=== PATIENT | female | born 1965 | race African-American/Black ===

== ENCOUNTER 2018-06-24 18:49 | Emergency (ER) | payer OTHER ==
[2018-06-24 18:54] VITALS: BP 129/82; PULSE 111; TEMP 100.2
[2018-06-24] MEDS ORDERED: ALBUTEROL SO4 2.5/IPRATROPIUM 0.5 INH SOL 3 ML VIAL.NEB. NEB ONE ×2 (19:16→19:43)
[2018-06-24] MEDS ORDERED: ACETAMINOPHEN 500 MG TABLET (FP) PO ONE (19:16)
[2018-06-24] MEDS ORDERED: predniSONE 20 MG TABLET (UD) PO ONE (19:17)
[2018-06-24] MEDS ORDERED: LOPERAMIDE HCL 2 MG CAPSULE PO ONE (19:17)
--- NOTE | 2018-06-24 19:18 | PDOC ---
History of Present Illness - History of Present Illness Initial Comments: 06/24/18 19:38 HPI: The patient is a 52 year old female, with a significant past medical history of asthma, COPD, and HTN, who presents to the emergency department with, 2 days of worsening shortness of breath diarrhea, fevers, chills, and productive cough with dark brown sputum. She describes her diarrhea as 6 episodes of nonbloody, watery stools. Patient also endorses associated weakness, decreased PO intake, and dizziness. She notes taking Pepto Bismol and her rescue inhaler, with minimal relief, prompting her visit to the ER. She denies recent nausea, vomit, or constipation. She denies recent dysuria, frequency, urgency or hematuria. She denies recent chest pain or palpitations. PAST MEDICAL HISTORY: no significant history PAST SURGICAL HISTORY: no significant history FAMILY HISTORY: no pertinent history SOCIAL HISTORY: Pt lives with family and is employed. MEDICATIONS: reviewed ALLERGIES: As per nursing notes ROS: +General: Fever. Chills. No weakness, no weight loss HEENT: No change in vision. No sore throat,. No ear pain CardioVascular: No chest pain +Respiratory: SOB. Cough. +Gastrointestinal: Diarrhea. Decreased PO intake. no nausea, vomiting, or constipation, No rectal bleeding Genitourinary: No dysuria, hematuria, or frequency Musculoskeletal: No joint or muscle pain or swelling +Neurologic: Dizziness. No headache, vertigo, or loss of consciousness Psychiatric: nor depression Skin: No rashes or easy bruising Endocrine: no increased thirst or abnormal weight change Allergic: no skin or latex allergy All other systems reviewed and normal Physical Exam: General: Well-nourished well-developed individual, no acute distress HEENT: Throat: Normal, tonsils normal, no erythema or exudate Neck: Supple, no meningeal signs, no lymphadenopathy Eyes::Pupils equal reactive and round, extraocular motion intact Chest: Nontender to palpation Cardiac: S1-S2 normal, regular rate and rhythm, no murmurs rubs or gallops +Respiratory: Mildly decreased breath sounds bilaterally with mild expiratory wheezing. Abdomen: Soft, nondistended, normal bowel sounds, nontender to palpation diffusely Extremities: Warm, dry, no cyanosis, clubbing, or edema Skin: No rashes Neuro: Alert and oriented x3, nonfocal exam, grossly intact, normal gait Psych: Normal mood and affect <Kyle Shea - Last Filed: 06/24/18 19:37> - General History Source: Patient Exam Limitations: No Limitations - History of Present Illness Initial Comments: 06/24/18 19:42 A portion of this note was documented by scribe services under my direction. I have reviewed the details of the note, within reason, and agree with the documentation with the following case summary and management plan written by me. Patient treated in the ED. Nursing notes are reviewed and incorporated into the medical decision-making. Vital signs reviewed. Assessment and plan: This is a 52-year-old female who comes in complaining of 1 day of diarrhea with low-grade fever. Patient denies any abdominal pain. Patient also is complaining of some wheezing and exacerbation of her asthma. On exam patient did have some expiratory wheezing otherwise her exam was normal. Chest x-ray was done as patient has a low-grade fever and said she is having productive brownish phlegm. Patient given a DuoNeb and prednisone. Patient also given Imodium for the diarrhea. <Shannan Carter I - Last Filed: 06/24/18 20:09> - General Chief Complaint: Diarrhea Stated Complaint: nausea,diarrhea Time Seen by Provider: 06/24/18 19:11 Past History <Kyle Shea - Last Filed: 06/24/18 19:37> - Past Medical History Asthma: Yes COPD: Yes HTN: Yes - Immunization History Td Vaccination: Yes Immunization Up to Date: Yes - Suicide/Smoking/Psychosocial Hx Smoking Status: Yes Smoking History: Current every day smoker Years of Tobacco Use: 35 Have you smoked in the past 12 months: Yes Number of Cigarettes Smoked Daily: 5 Cigars Per Day: 0 Information on smoking cessation initiated: Yes 'Breaking Loose' booklet given: 03/30/12 Hx Alcohol Use: No Drug/Substance Use Hx: No Substance Use Type: None Hx Substance Use Treatment: No <Shannan Carter I - Last Filed: 06/24/18 20:09> - Past Medical History Allergies/Adverse Reactions: Allergies Allergy/AdvReac Type Severity Reaction Status Date / Time ibuprofen Allergy Intermediate Verified 06/24/18 18:51 Home Medications: Ambulatory Orders Albuterol Sulfate Inhaler - [Ventolin HFA Inhaler -] 1 - 2 inh IH QID PRN #0 02/07 Valsartan [Diovan] 80 mg PO DAILY #0 tablet 06/27/12 Azithromycin 250 mg PO DAILY #4 tablet 06/24/18 Budesonide/Formeterol Fumarate [SYMBICORT 160/4.5mcg -] 1 inh PO BID 06/24/18 Prednisone [Deltasone] 40 mg PO DAILY #8 tablet 06/24/18 *Physical Exam - Vital Signs Last Vital Signs Temp Pulse Resp BP Pulse Ox 100.2 F H 111 H 18 129/82 100 06/24/18 18:50 06/24/18 18:50 06/24/18 18:50 06/24/18 18:50 06/24/18 18:50 <Kyle Shea - Last Filed: 06/24/18 19:37> - Vital Signs Last Vital Signs Temp Pulse Resp BP Pulse Ox 100.2 F H 111 H 18 129/82 100 06/24/18 18:50 06/24/18 18:50 06/24/18 18:50 06/24/18 18:50 06/24/18 18:50 <Shannan Carter I - Last Filed: 06/24/18 20:09> Moderate Sedation - Procedure Monitoring Vital Signs: Procedure Monitoring Vital Signs Temperature 100.2 F H 06/24/18 18:50 Pulse Rate 111 H 06/24/18 18:50 Respiratory Rate 18 06/24/18 18:50 Blood Pressure 129/82 06/24/18 18:50 O2 Sat by Pulse Oximetry (%) 100 06/24/18 18:50 <Kyle Shea - Last Filed: 06/24/18 19:37> - Procedure Monitoring Vital Signs: Procedure Monitoring Vital Signs Temperature 100.2 F H 06/24/18 18:50 Pulse Rate 111 H 06/24/18 18:50 Respiratory Rate 18 06/24/18 18:50 Blood Pressure 129/82 06/24/18 18:50 O2 Sat by Pulse Oximetry (%) 100 06/24/18 18:50 <Shannan Carter I - Last Filed: 06/24/18 20:09> *DC/Admit/Observation/Transfer - Attestations Scribe Attestion: 06/24/18 19:38 Documentation prepared by Kyle Shea, acting as medical case manager for Shannan Carter MD. <Kyle Shea - Last Filed: 06/24/18 19:37> - Discharge Dispostion Decision to Admit order: No <Shannan Carter I - Last Filed: 06/24/18 20:09> Diagnosis at time of Disposition: Diarrhea Qualifiers: Diarrhea type: unspecified type Qualified Code(s): R19.7 - Diarrhea, unspecified Asthma exacerbation Qualifiers: Asthma severity: unspecified severity Asthma persistence: intermittent Qualified Code(s): J45.21 - Mild intermittent asthma with (acute) exacerbation - Discharge Dispostion Disposition: HOME Condition at time of disposition: Stable - Prescriptions Prescriptions: Azithromycin 250 mg PO DAILY #4 tablet Prednisone [Deltasone] 40 mg PO DAILY #8 tablet - Referrals - Patient Instructions Printed Discharge Instructions: Smoking Cessation Additional Instructions: If you have further episodes of diarrhea, You can take up to 2 more Imodium tonight and to tomorrow if needed. Get the prescription filled for the Zithromax and take the Zithromax as prescribed 1 a day for the next 4 days take her first dose tomorrow evening. Use your inhaler as needed. Take prednisone for your asthma 2 tablets once a day for the next 4 days. Return to the emergency department immediately with ANY new, persistent or worsening symptoms. Continue any medications as previously prescribed by your physician. You should follow up with your primary doctor as soon as possible regarding today's emergency department visit. . Please make sure your doctor reviews the results of your emergency evaluation. Thank you for coming to the Emergency Department today for your care. It was a pleasure to see you today. Please note that your evaluation is INCOMPLETE until you follow-up with your doctor. - Post Discharge Activity
[2018-06-24] MEDS ORDERED: LOPERAMIDE HCL 2 MG CAPSULE ONE (19:42)
[2018-06-24] MEDS ORDERED: predniSONE 20 MG TABLET (UD) ONE (19:43)
[2018-06-24] MEDS ORDERED: ACETAMINOPHEN 500 MG TABLET (FP) ONE (19:43)
[2018-06-24] MEDS ORDERED: AZITHROMYCIN 250 MG TABLET PO ONE (20:05)
[2018-06-24] MEDS ORDERED: AZITHROMYCIN 250 MG TABLET ONE (20:05)
== END 2018-06-24 20:24 | disposition home or self-care (01) ==
LOC: FER 18:49
PROC: 3E0F7GC Introduction of Other Therapeutic Substance into Respiratory Tract, Via Natural or Artificial Opening (ICD-10-PCS; principal; 2018-06-24)
DX: J45.21 Mild intermittent asthma with (acute) exacerbation (principal); R19.7 Diarrhea, unspecified; F17.210 Nicotine dependence, cigarettes, uncomplicated; I10 Essential (primary) hypertension; J44.9 Chronic obstructive pulmonary disease, unspecified
CPT/HCPCS: 71046-TC-FY; 94640; 99282-25